=== PATIENT | female | born 1980 | race Caucasian/White ===

== ENCOUNTER 2025-01-13 06:27 | Day surgery (SDC) | payer BC ==
[2025-01-13] MEDS ORDERED: Scopalamine 1mg/3day Transdermal Patch TOP ONE (06:30)
[2025-01-13 06:58] LABS: HEMATOCRIT 34.7 % (37.0-47.0); HEMOGLOBIN 12.1 g/dL (12.0-16.0); MEAN CORPUSCULAR HEMOGLOBIN 29.7 pg (28.0-32.0); MEAN CORPUSCULAR HGB CONC 34.9 g/dL (32.0-36.0); MEAN PLATELET VOLUME 11.3 fL (9.4-12.3); PLATELET COUNT,PLT 212 K/uL (150-400); RED BLOOD CELL COUNT 4.08 M/uL (4.10-5.30); WHITE BLOOD CELL COUNT,WBC 8.47 K/uL (3.9-11.3)
[2025-01-13] MEDS: Lactated Ringers 1,000 ML IV SCH (06:58)
[2025-01-13] MEDS ORDERED: Midazolam 1 MG/ML 2 ML SDV ONE (07:21)
[2025-01-13] MEDS ORDERED: fentaNYL 100 MCG/2 ML SDV ONE (07:21)
[2025-01-13] MEDS ORDERED: Propofol 200 MG/20 ML SDV ONE (07:22)
[2025-01-13] MEDS ORDERED: Lidocaine 2% 5 ML SDV ONE (07:23)
[2025-01-13] MEDS ORDERED: Ondansetron 4 MG/2 ML SDV IVPUSH PRN (07:52)
[2025-01-13] MEDS ORDERED: Phenylephrine HCl In 0.9% NaCl 1 MG/10 ML Syringe IVPUSH PRN (07:52)
[2025-01-13] MEDS ORDERED: fentaNYL 50 MCG/ML SDV IVPUSH PRN (07:52)
[2025-01-13] MEDS ORDERED: Metoclopramide 10 MG/2 ML SDV IVPUSH PRN (07:52)
[2025-01-13] MEDS ORDERED: Morphine 2 MG/ML SYRINGE IVPUSH PRN (07:52)
[2025-01-13] MEDS ORDERED: HYDROmorphone 1 MG/ML Syringe IVPUSH PRN (07:52)
[2025-01-13] MEDS ORDERED: Albuterol 0.083% 2.5 MG/3 ML Neb Soln NEB PRN (07:52)
[2025-01-13] MEDS ORDERED: Naloxone 0.4 MG/ML SDV IVPUSH PRN (07:52)
[2025-01-13] MEDS ORDERED: Dexamethasone 4 MG/ML 5 ML MDV ONE (08:16)
[2025-01-13] MEDS ORDERED: Ondansetron 4 MG/2 ML SDV ONE (08:16)
[2025-01-13] MEDS ORDERED: Ketorolac 30 MG/ML SDV ONE (08:37)
== END 2025-01-13 09:40 | disposition home or self-care (01) ==
LOC: MW.SDS 06:27
PROVIDERS: ATTEND Obstetrics & Gynecology
DX: N92.0 Excessive and frequent menstruation with regular cycle (principal); E06.3 Autoimmune thyroiditis; Z79.890 Hormone replacement therapy; Z79.899 Other long term (current) drug therapy
CPT/HCPCS: 36415; 58300; 58558; 84703; 85027; J1100; J1885; J2003; J2250; J2405; J2704; J3010; J7120; 00952